=== PATIENT | male | born 1960 | race Caucasian/White ===

== ENCOUNTER → 2017-05-14 | Outpatient (CLI) | payer OTHER | END | disposition home or self-care (01) | LOC: CP 09:25 | DX: J45.20 Mild intermittent asthma, uncomplicated (principal) ==

== ENCOUNTER 2017-06-15 02:02 | Inpatient (IN) | payer OTHER ==
[2017-06-15] VITALS (9 sets, daily range): BP systolic 106–190; BP diastolic 37–88
[~2017-06-15] VITALS: Ht 182.9 cm; Wt 226.5 kg
--- NOTE | ~2017-06-15 | CON ---
[place], [place] REPORT OF CONSULTATION NAME[id number] UNIT #: [id number] ROOM: 428 DOCTOR: ANUSHKA HANCOCK MD BIRTHDATE: [birth year] DOS: REASON FOR CONSULTATION: I was consulted because of atypical chest pain. HISTORY OF PRESENT ILLNESS: A 56-year-old presented with significant shortness of breath, he has been having this for a couple of weeks. The patient has a history of sleep apnea, for which he uses a CPAP. He also had some chest pressure and chest pain. Denies associated with exacerbation or limiting factor. He was seen by a center medical and lab director at [facility] 6 years ago and was told that he only had a murmur. Previous cardiac workup was negative. He went to see his PCP, Liliana, who tested him for flu, which was negative. The patient had urinalysis positive for UTI and treated with Rocephin. Chest x-ray showed pulmonary vascular congestion with small left-sided pleural effusion. PAST MEDICAL HISTORY: Obesity, diabetes, hypertension, hyperlipidemia, sleep apnea. SOCIAL HISTORY: Denies any alcohol or tobacco abuse. Consumes occasional alcohol. No drug abuse. FAMILY HISTORY: Positive for coronary artery disease. ALLERGIES: None. REVIEW OF SYSTEMS: CONSTITUTIONAL: Reports fever and chills. HEENT: No visual disturbances or hearing problems. CARDIOVASCULAR: As per HPI. RESPIRATORY: He does have shortness of breath, particularly exertional. ABDOMEN: Reports constipation. GENITOURINARY: Reports dysuria. NEUROLOGIC: No syncope. PHYSICAL EXAMINATION: VITAL SIGNS: Blood pressure is 150/70. The patient is in sinus rhythm. HEENT: Mildly elevated JVD. LUNGS: Diminished air entry bilaterally. HEART: Sounds are regular. No murmur. ABDOMEN: Obese, soft, nontender. EXTREMITIES: About 1 to 2+ edema. NEUROLOGIC: Stable. LABORATORY DATA: Sodium 141, potassium 4.1, creatinine is 0.8, BUN 9. Cardiac enzymes have been negative. BNP is elevated at 1000. Hemoglobin 12.8, hematocrit within normal limits. Chest x-ray as mentioned. EKG is sinus with nonspecific ST-T changes. IMPRESSION: Probable congestive heart failure with elevated BNP with morbid obesity, sleep apnea and shortness of breath, and chest x-ray showing pulmonary vascular congestion. I would strongly get an echocardiogram to assess for [place], [place] REPORT OF CONSULTATION NAME: JING SHIELDS JR UNIT #: [id number] ROOM: 428 DOCTOR: ANUSHKA HANCOCK MD BIRTHDATE: [birth year] systolic function. The patient also has urinary tract infection. The patient is hypertensive. Morbid obesity, tachycardia, tachypnea, fever, urinary tract infection, and diabetes. RECOMMENDATIONS: Continue the present care. Continue IV diuretics. Follow the CHF pathway. We will get an echocardiogram to assess the ejection fraction to see whether it is systolic or diastolic. Continue the IV antibiotics for UTI. Strict I's and O's. Monitor blood sugars very closely. Once the urinary tract infection is cleared up, consider a stress test as an outpatient. We will review the echocardiogram. Add a dose of an RAFA inhibitor and a small dose of beta jud to control the blood pressure better along with the diuretics. Thank you very much for this interesting consultation. ANUSHKA HANCOCK MD CM:CONSTR:REPORT OF CONSULTATION 0726 06/15/17 0750 interface
[2017-06-15 02:34] LABS: ABG BASE EXCESS 1.3 mmol/L (-2.0-2.0); ABG HCO3 24.6 mmol/l (22-26); ABG O2 SATURATION 96.4 % (95-97); ARTERIAL BLOOD GAS PCO2 39.1 mmHg (35-45); ARTERIAL BLOOD GAS PH 7.423 (7.35-7.45); ARTERIAL BLOOD GAS PO2 87.1 mmHg (80-90)
[2017-06-15 02:41] LABS: BASO % 0.3 % (0.0-1.0); EOS % 0.1 % (1.0-4.0); HEMATOCRIT 40.8 % (42.0-52.0); HEMOGLOBIN 12.8 g/dl (14.0-18.0); LYMPH # 0.7 10*3/uL (1.3-4.4); LYMPH % 9.9 % (27.0-41.0); MEAN CELL VOLUME 87.4 fl (80.0-94.0); MEAN CORPUSCULAR HGB 27.4 pg (27.0-31.0); MEAN CORPUSCULAR HGB CONC 31.4 g/dl (33.0-37.0); MONO # 0.3 10*3/uL (0.1-1.0); MONO % 4.8 % (3.0-9.0); NEUT # 5.8 10*3/uL (2.3-7.9); NEUT % 84.6 % (47.0-73.0); PLATELET COUNT AUTOMATED 126 10*3/uL (130-400); RED BLOOD COUNT 4.67 10*6/uL (4.50-5.90); RED CELL DISTRI WIDTH 14.8 % (0-14.5); WHITE BLOOD COUNT 6.9 10*3/uL (4.8-10.8)
[2017-06-15 02:51] LABS: ACT PARTIAL THROMBO TIME 26.2 SECONDS (20.8-31.5); INTERNATIONAL NORM RATIO 1.1 (2.0-3.5)
[2017-06-15 02:57] LABS: ALKALINE PHOSPHATASE 62 U/L (45-117); BUN 9 mg/dl (7-24); CHLORIDE 103 mmol/L (98-107); CREATININE 0.82 mg/dL (0.70-1.30); POTASSIUM 4.1 mmol/L (3.5-5.1); SGOT/AST 31 IU/L (3-35); SGPT/ALT 30 U/L (12-78); SODIUM 141 mmol/L (136-145)
[2017-06-15 03:42] LABS: BILIRUBIN NEGATIVE (NEGATIVE); BLOOD 3+ (NEGATIVE); CLARITY SL CLOUDY (CLEAR); COLOR YELLOW (YELLOW); GLUCOSE NEGATIVE (NEGATIVE); KETONE NEGATIVE (NEGATIVE); LEUKO ESTERASE 1+ (NEGATIVE); NITRITE POSITIVE (NEGATIVE); SPECIFIC GRAVITY 1.015 (1.005-1.030); UROBILINOGEN 0.2 E.U./dl (0.2-1.0)
[2017-06-15 03:51] LABS: BACTERIA 3+
[2017-06-15 03:52] LABS: RBC 31-40 rbc/hpf (0-2); WBC 21-30 wbc/hpf (0-5)
[2017-06-15 06:07] LABS: FREE T4 1.07 ng/dl (0.76-1.46); PHOSPHOROUS 2.8 mg/dL (2.5-4.9)
[2017-06-15 06:12] LABS: THYROID STIM HORMONE (HS) 0.672 uIU/ml (0.358-4.75)
[2017-06-15 07:37] LABS: VITAMIN D, 25-HYDROXY 19.7 ng/mL (30-100)
[2017-06-15] MEDS ORDERED: COREG25 MG PO (09:40)
[2017-06-15] MEDS ORDERED: PROAIR HFA8.5 GM INH (09:41)
[2017-06-15] MEDS ORDERED: LOSARTAN POTASS25 M1 PO (09:41)
[2017-06-15] MEDS ORDERED: AVPAK AZITHROM250 M1 PO (09:42)
[2017-06-15] MEDS ORDERED: METFORMIN500 MG PO (09:42)
[2017-06-15] MEDS ORDERED: OXYCODONE HCL5 M1 PO (09:42)
[2017-06-16] VITALS: BP 141/56
[2017-06-16 06:27] LABS: BASO % 0.2 % (0.0-1.0); EOS # 0.1 10*3/uL (0.0-0.4); EOS % 1.7 % (1.0-4.0); HEMATOCRIT 38.6 % (42.0-52.0); HEMOGLOBIN 12.2 g/dl (14.0-18.0); LYMPH # 1.3 10*3/uL (1.3-4.4); LYMPH % 31.6 % (27.0-41.0); MEAN CELL VOLUME 86.2 fl (80.0-94.0); MEAN CORPUSCULAR HGB 27.2 pg (27.0-31.0); MEAN CORPUSCULAR HGB CONC 31.6 g/dl (33.0-37.0); MEAN PLATELET VOLUME 11.2 fl (9.6-12.3); MONO # 0.7 10*3/uL (0.1-1.0); MONO % 15.8 % (3.0-9.0); NEUT # 2.1 10*3/uL (2.3-7.9); NEUT % 50.5 % (47.0-73.0); PLATELET COUNT AUTOMATED 122 10*3/uL (130-400); RED BLOOD COUNT 4.48 10*6/uL (4.50-5.90); WHITE BLOOD COUNT 4.2 10*3/uL (4.8-10.8)
[2017-06-16 07:02] LABS: ALBUMIN 2.9 gm/dl (3.1-4.5); ALKALINE PHOSPHATASE 54 U/L (45-117); BUN 9 mg/dl (7-24); CHLORIDE 103 mmol/L (98-107); CREATININE 0.61 mg/dL (0.70-1.30); POTASSIUM 3.6 mmol/L (3.5-5.1); SGOT/AST 41 IU/L (3-35); SGPT/ALT 32 U/L (12-78); SODIUM 139 mmol/L (136-145); TOTAL PROTEIN 6.6 gm/dL (6.4-8.2)
[2017-06-16 08:00] VITALS: BP 165/77
[2017-06-16 12:00] VITALS: BP 154/99
[2017-06-16 16:00] VITALS: BP 162/78; BP 187/89
[2017-06-16 20:00] VITALS: BP 176/81
[2017-06-17] VITALS: BP 153/66; BP 176/80; BP 86/61
[2017-06-17 08:00] VITALS: BP 172/80
[2017-06-17] MEDS ORDERED: LOSARTAN POTASS50 M1 PO (08:36)
[2017-06-17] MEDS ORDERED: VITAMIN D31000 UNIT PO (08:36)
[2017-06-17] MEDS ORDERED: HYDR12.5C PO (08:36)
[2017-06-17] MEDS ORDERED: MACROBID100 M1 PO ×2 (08:40→11:24)
== END 2017-06-17 12:45 | disposition home or self-care (01) | DRG 871 ==
LOC: ED 02:02 → 4E 04:13 → EDHOLD 04:13 → 4E 04:31
PROVIDERS: Internal Medicine; Student in an Organized Health Care Education/Training Program
DX: A41.9 Sepsis, unspecified organism (principal); J18.1 Lobar pneumonia, unspecified organism; D69.6 Thrombocytopenia, unspecified; E44.0 Moderate protein-calorie malnutrition; I11.0 Hypertensive heart disease with heart failure; I50.9 Heart failure, unspecified; E11.65 Type 2 diabetes mellitus with hyperglycemia; E66.01 Morbid (severe) obesity due to excess calories; I16.1 Hypertensive emergency; N39.0 Urinary tract infection, site not specified; Z68.44 Body mass index [BMI] 60.0-69.9, adult; G47.33 Obstructive sleep apnea (adult) (pediatric); K21.9 Gastro-esophageal reflux disease without esophagitis; M94.0 Chondrocostal junction syndrome [Tietze]; D64.9 Anemia, unspecified; E78.5 Hyperlipidemia, unspecified; E55.9 Vitamin D deficiency, unspecified; Z79.899 Other long term (current) drug therapy; Z82.49 Family history of ischemic heart disease and other diseases of the circulatory system

== ENCOUNTER → 2017-09-27 | Outpatient (CLI) | payer OTHER ==
[~2017-09-27] MED LIST: AVPAK AZITHROM250 M1 PO; COREG25 MG PO; HYDR12.5C PO; LOSARTAN POTASS25 M1 PO; LOSARTAN POTASS50 M1 PO; MACROBID100 M1 PO; METFORMIN500 MG PO; OXYCODONE HCL5 M1 PO; PROAIR HFA8.5 GM INH; VITAMIN D31000 UNIT PO
== END | disposition home or self-care (01) ==
LOC: LAB 11:33
DX: D64.9 Anemia, unspecified (principal); R53.83 Other fatigue

== ENCOUNTER → 2017-09-30 | Outpatient (CLI) | payer OTHER ==
[2017-09-30 12:01] LABS: BUN 10 mg/dl (7-24); CHLORIDE 107 mmol/L (98-107); CREATININE 0.73 mg/dL (0.70-1.30); POTASSIUM 4.4 mmol/L (3.5-5.1); SODIUM 142 mmol/L (136-145)
== END | disposition home or self-care (01) ==
LOC: LAB 11:20
PROVIDERS: Internal Medicine Critical Care Medicine
DX: I10 Essential (primary) hypertension (principal)

== ENCOUNTER 2019-04-18 01:14 | Emergency (ER) | payer OTHER, MEDICAID ==
[~2019-04-18] VITALS: Ht 185.4 cm; Wt 244.9 kg
[2019-04-18] MEDS ORDERED: AMLODIPINE BESY10 MG PO (01:15)
[2019-04-18] MEDS ORDERED: ALPRAZOLAM0.5 M3 PO (01:16)
[2019-04-18] MEDS ORDERED: PRAMIPEXOLE DI0.5 MG PO (01:17)
[2019-04-18] MEDS ORDERED: DOXEPIN HCL50 MG PO (01:17)
[2019-04-18] MEDS ORDERED: METFORMIN HYDR500 MG PO (01:18)
[2019-04-18] MEDS ORDERED: CITALOPRAM HYDR40 MG PO (01:19)
[2019-04-18] MEDS ORDERED: FUROSEMIDE40 MG PO (01:19)
[2019-04-18] MEDS ORDERED: POTASSIUM CHLO20 ME3 PO (01:19)
[2019-04-18] MEDS ORDERED: DOXAZOSIN MESYLA2 MG PO (01:20)
[2019-04-18] MEDS ORDERED: AUGMENTIN 875-875 MG PO (01:59)
== END 2019-04-18 02:32 | disposition home or self-care (01) ==
LOC: ED 01:14
DX: K04.7 Periapical abscess without sinus (principal); E11.9 Type 2 diabetes mellitus without complications; E78.5 Hyperlipidemia, unspecified; I10 Essential (primary) hypertension; J45.909 Unspecified asthma, uncomplicated; E66.01 Morbid (severe) obesity due to excess calories; Z79.899 Other long term (current) drug therapy

== ENCOUNTER → 2019-05-03 | Outpatient (CLI) | payer OTHER ==
[~2019-05-03] MED LIST changes: +ALPRAZOLAM0.5 M3 PO; +AMLODIPINE BESY10 MG PO; +AUGMENTIN 875-875 MG PO; +CITALOPRAM HYDR40 MG PO; +DOXAZOSIN MESYLA2 MG PO; +DOXEPIN HCL50 MG PO; +FUROSEMIDE40 MG PO; +METFORMIN HYDR500 MG PO; +POTASSIUM CHLO20 ME3 PO; +PRAMIPEXOLE DI0.5 MG PO
== END | disposition home or self-care (01) ==
LOC: CARD 09:30
DX: I10 Essential (primary) hypertension (principal); R60.0 Localized edema; R06.09 Other forms of dyspnea

== ENCOUNTER 2019-09-14 02:13 | Emergency (ER) | payer OTHER, MEDICAID ==
[2019-09-14] MEDS ORDERED: AMOXICILLIN500 M2 PO (03:39)
== END 2019-09-14 04:18 | disposition home or self-care (01) ==
LOC: ED 02:13
DX: K08.89 Other specified disorders of teeth and supporting structures (principal); E11.9 Type 2 diabetes mellitus without complications; E66.01 Morbid (severe) obesity due to excess calories; I10 Essential (primary) hypertension; E78.5 Hyperlipidemia, unspecified; Z79.899 Other long term (current) drug therapy

== ENCOUNTER 2019-09-27 20:22 | Emergency (ER) | payer OTHER, MEDICAID ==
[~2019-09-27] VITALS: Ht 185.4 cm; Wt 251.7 kg
[~2019-09-27 20:22] MED LIST changes: +AMOXICILLIN500 M2 PO
== END 2019-09-27 22:20 | disposition home or self-care (01) ==
LOC: ED 20:22
DX: K08.89 Other specified disorders of teeth and supporting structures (principal); J45.909 Unspecified asthma, uncomplicated; I10 Essential (primary) hypertension; E11.9 Type 2 diabetes mellitus without complications; E66.9 Obesity, unspecified; Z79.899 Other long term (current) drug therapy

== ENCOUNTER 2020-11-17 21:45 | Emergency (ER) | payer OTHER ==
[2020-11-17 23:00] LABS: BASO % 0.3 % (0.0-1.0); EOS # 0.2 10*3/uL (0.0-0.4); EOS % 3.1 % (1.0-4.0); HEMATOCRIT 38.4 % (42.0-52.0); LYMPH # 1.7 10*3/uL (1.3-4.4); LYMPH % 27.9 % (27.0-41.0); MEAN CELL VOLUME 85.3 fl (80.0-94.0); MEAN CORPUSCULAR HGB 26.7 pg (27.0-31.0); MEAN CORPUSCULAR HGB CONC 31.3 g/dl (33.0-37.0); MEAN PLATELET VOLUME 9.8 fl (9.6-12.3); MONO # 0.5 10*3/uL (0.1-1.0); MONO % 8.1 % (3.0-9.0); NEUT # 3.7 10*3/uL (2.3-7.9); NEUT % 60.4 % (47.0-73.0); PLATELET COUNT AUTOMATED 188 10*3/uL (130-400); WHITE BLOOD COUNT 6.2 10*3/uL (4.8-10.8)
[2020-11-17 23:16] LABS: ALBUMIN 2.8 gm/dl (3.1-4.5); ALKALINE PHOSPHATASE 78 U/L (45-117); BUN 10 mg/dl (7-24); CHLORIDE 106 mmol/L (98-107); CREATININE 0.77 mg/dL (0.70-1.30); LIPASE 84 U/L (73-393); POTASSIUM 3.8 mmol/L (3.5-5.1); SGOT/AST 21 IU/L (3-35); SGPT/ALT 22 U/L (12-78); SODIUM 137 mmol/L (136-145); TOTAL PROTEIN 7.5 gm/dL (6.4-8.2); TROPONIN I < 0.015 ng/ml (<0.045)
[2020-11-18] MEDS ORDERED: CEPHALEXIN500 M1 PO (01:22)
== END 2020-11-18 01:45 | disposition home or self-care (01) ==
LOC: ED 21:45
PROVIDERS: Physician Assistant
DX: L03.115 Cellulitis of right lower limb (principal); L03.116 Cellulitis of left lower limb; R60.0 Localized edema; R79.82 Elevated C-reactive protein (CRP); R06.02 Shortness of breath; Z79.2 Long term (current) use of antibiotics; Z79.899 Other long term (current) drug therapy

== ENCOUNTER 2021-03-17 23:12 | Emergency (ER) | payer MEDICARE ==
[~2021-03-17] VITALS: Ht 172.7 cm; Wt 276.7 kg
[~2021-03-17 23:12] MED LIST changes: +CEPHALEXIN500 M1 PO
[2021-03-17 23:32] LABS: BASO % 0.2 % (0.0-1.0); EOS # 0.1 10*3/uL (0.0-0.4); EOS % 0.6 % (1.0-4.0); HEMATOCRIT 36.5 % (42.0-52.0); LYMPH # 1.5 10*3/uL (1.3-4.4); LYMPH % 11.9 % (27.0-41.0); MEAN CELL VOLUME 84.3 fl (80.0-94.0); MEAN CORPUSCULAR HGB 25.6 pg (27.0-31.0); MEAN CORPUSCULAR HGB CONC 30.4 g/dl (33.0-37.0); MEAN PLATELET VOLUME 9.5 fl (9.6-12.3); MONO # 0.9 10*3/uL (0.1-1.0); MONO % 7.2 % (3.0-9.0); NEUT % 79.7 % (47.0-73.0); PLATELET COUNT AUTOMATED 211 10*3/uL (130-400); RED BLOOD COUNT 4.33 10*6/uL (4.50-5.90); RED CELL DISTRI WIDTH 15.8 % (0-14.5); WHITE BLOOD COUNT 12.6 10*3/uL (4.8-10.8)
[2021-03-17 23:48] LABS: ALBUMIN 2.4 gm/dl (3.1-4.5); ALKALINE PHOSPHATASE 68 U/L (45-117); BUN 11 mg/dl (7-24); CHLORIDE 108 mmol/L (98-107); POTASSIUM 4.3 mmol/L (3.5-5.1); SGOT/AST 21 IU/L (3-35); SGPT/ALT 19 U/L (12-78); SODIUM 137 mmol/L (136-145); TOTAL PROTEIN 7.2 gm/dL (6.4-8.2)
== END 2021-03-18 03:16 | disposition home or self-care (01) ==
LOC: ED 23:12
PROVIDERS: Internal Medicine
DX: B34.9 Viral infection, unspecified (principal); Z20.822 Contact with and (suspected) exposure to COVID-19; E66.01 Morbid (severe) obesity due to excess calories; E88.09 Other disorders of plasma-protein metabolism, not elsewhere classified; D72.829 Elevated white blood cell count, unspecified

== ENCOUNTER 2023-05-19 18:39 | Emergency (ER) | payer MEDICARE, MEDICAID ==
[~2023-05-19] VITALS: Ht 182.8 cm; Wt 240.4 kg
[~2023-05-19 18:39] MED LIST changes: +AMLODIPINE BESYL5 MG PO; +BUMETANIDE1 MG PO; +CARVEDILOL25 MG PO; +COZAAR50 M1 PO; +DEXAMETHASONE6 MG PO; +DOXYCYCLINE HY100 M3 PO; +HYDROCODONE-AC1 EAC1 PO; +HYDROCODONE-AC1 EACH PO; +LEVOFLOXACIN750 M2 PO; +OXYGEN NAS; +PREDNISONE10 MG PO; +PROVENTIL HFA6.7 GM INH; +VIBRAMYCIN HYC100 MG PO; +XANAX0.25 MG PO; +XARE20MG PO
[2023-05-19 19:30] LABS: BASO % 0.4 % (0.0-1.0); EOS # 0.2 10*3/uL (0.0-0.4); EOS % 2.9 % (1.0-4.0); LYMPH # 1.3 10*3/uL (1.3-4.4); LYMPH % 15.5 % (27.0-41.0); MEAN CELL VOLUME 88.2 fl (80.0-94.0); MEAN CORPUSCULAR HGB 25.6 pg (27.0-31.0); MEAN CORPUSCULAR HGB CONC 29.1 g/dl (33.0-37.0); MEAN PLATELET VOLUME 9.3 fl (9.6-12.3); MONO # 0.6 10*3/uL (0.1-1.0); MONO % 7.7 % (3.0-9.0); NEUT # 6.1 10*3/uL (2.3-7.9); NEUT % 73.3 % (47.0-73.0); PLATELET COUNT AUTOMATED 219 10*3/uL (130-400); RED BLOOD COUNT 3.63 10*6/uL (4.50-5.90); RED CELL DISTRI WIDTH 18.2 % (0-14.5); WHITE BLOOD COUNT 8.3 10*3/uL (4.8-10.8)
[2023-05-19 19:53] LABS: BUN 9 mg/dl (9-23); CHLORIDE 101 mmol/L (98-107); LIPASE 18 U/L (12-53); POTASSIUM 4.5 mmol/L (3.4-5.1)
== END 2023-05-19 22:23 | disposition home or self-care (01) ==
LOC: ED 18:39
PROVIDERS: Internal Medicine
DX: R07.89 Other chest pain (principal); Z48.00 Encounter for change or removal of nonsurgical wound dressing; J44.9 Chronic obstructive pulmonary disease, unspecified; E11.9 Type 2 diabetes mellitus without complications; I48.91 Unspecified atrial fibrillation; I11.0 Hypertensive heart disease with heart failure; I50.9 Heart failure, unspecified; F32.A Depression, unspecified; F41.9 Anxiety disorder, unspecified; D64.9 Anemia, unspecified; Z88.5 Allergy status to narcotic agent; Z88.8 Allergy status to other drugs, medicaments and biological substances; Z98.890 Other specified postprocedural states

== ENCOUNTER 2023-05-21 14:12 | Inpatient (IN) | payer MEDICARE ==
[~2023-05-21] VITALS: Ht 185.4 cm; Wt 269.0 kg
[2023-05-21 14:28] VITALS: BP 106/68
[2023-05-21 14:43] LABS: BASO % 0.4 % (0.0-1.0); EOS # 0.2 10*3/uL (0.0-0.4); EOS % 2.6 % (1.0-4.0); HEMATOCRIT 30.2 % (42.0-52.0); LYMPH % 15.1 % (27.0-41.0); MEAN CELL VOLUME 89.3 fl (80.0-94.0); MEAN CORPUSCULAR HGB 25.4 pg (27.0-31.0); MEAN CORPUSCULAR HGB CONC 28.5 g/dl (33.0-37.0); MEAN PLATELET VOLUME 9.1 fl (9.6-12.3); MONO # 0.6 10*3/uL (0.1-1.0); MONO % 8.7 % (3.0-9.0); NEUT % 72.8 % (47.0-73.0); PLATELET COUNT AUTOMATED 197 10*3/uL (130-400); RED BLOOD COUNT 3.38 10*6/uL (4.50-5.90); RED CELL DISTRI WIDTH 18.3 % (0-14.5); WHITE BLOOD COUNT 6.8 10*3/uL (4.8-10.8)
[2023-05-21 14:56] LABS: ACT PARTIAL THROMBO TIME 40.9 SECONDS (20.0-32.1)
[2023-05-21 15:06] LABS: ALKALINE PHOSPHATASE 65 U/L (46-116); BUN 10 mg/dl (9-23); CHLORIDE 103 mmol/L (98-107); LIPASE 19 U/L (12-53); POTASSIUM 4.5 mmol/L (3.4-5.1); SGPT/ALT 8 U/L (5-49); TOTAL PROTEIN 6.7 gm/dL (6.0-8.0)
[2023-05-21] MEDS ORDERED: Ceftriaxone Sodium 1 GM/10 ML SYR IV ONE (16:30)
[2023-05-21] MEDS ORDERED: AZITHROMYCIN 250 ML IV ONE (16:30)
[2023-05-21] MEDS ORDERED: methylPREDNISolone sod succ 125 MG VIAL IV ONE (16:30)
[2023-05-21] MEDS ORDERED: Albuterol Sulf/Ipratropium 3 ML VIAL NEB ONE (16:30)
[2023-05-21] MEDS ORDERED: Ondansetron Hydrochloride 4 MG/2 ML VIAL IV PRN (16:55)
[2023-05-21] MEDS ORDERED: ACETAMINOPHEN 325 MG TAB PO PRN (16:55)
[2023-05-21] MEDS ORDERED: Magnesium Hydroxide 30 ML UDC PO PRN (16:55)
[2023-05-21] MEDS ORDERED: Albuterol Sulf/Ipratropium 3 ML VIAL NEB SCH (17:10)
[2023-05-21] MEDS ORDERED: RIVAROXABAN 20 MG TAB PO SCH (18:00)
[2023-05-21 21:00] VITALS: BP 92/47
[2023-05-21] MEDS ORDERED: XANAX1 MG PO (21:45)
[2023-05-21] MEDS ORDERED: Doxepin Hydrochloride 25 MG CAP PO SCH (22:00)
[2023-05-21] MEDS ORDERED: GUAIFENESIN 600 MG TAB ER PO SCH (22:00)
[2023-05-21] MEDS ORDERED: ALPRAZolam 0.5 MG TAB PO PRN (22:00)
[2023-05-21] MEDS ORDERED: NYSTATIN 30 GM POWDER T SCH (22:15)
[2023-05-22] VITALS: BP 94/52
[2023-05-22 06:42] LABS: BASO % 0.2 % (0.0-1.0); EOS % 0.4 % (1.0-4.0); HEMATOCRIT 28.9 % (42.0-52.0); LYMPH # 0.6 10*3/uL (1.3-4.4); LYMPH % 11.8 % (27.0-41.0); MEAN CELL VOLUME 87.8 fl (80.0-94.0); MEAN CORPUSCULAR HGB 26.1 pg (27.0-31.0); MEAN CORPUSCULAR HGB CONC 29.8 g/dl (33.0-37.0); MEAN PLATELET VOLUME 9.8 fl (9.6-12.3); MONO # 0.1 10*3/uL (0.1-1.0); MONO % 1.7 % (3.0-9.0); NEUT # 4.7 10*3/uL (2.3-7.9); NEUT % 85.3 % (47.0-73.0); PLATELET COUNT AUTOMATED 211 10*3/uL (130-400); RED BLOOD COUNT 3.29 10*6/uL (4.50-5.90); WHITE BLOOD COUNT 5.4 10*3/uL (4.8-10.8)
[2023-05-22 06:48] LABS: ALKALINE PHOSPHATASE 66 U/L (46-116); BUN 14 mg/dl (9-23); CHLORIDE 103 mmol/L (98-107); SGPT/ALT 8 U/L (5-49); TOTAL PROTEIN 6.6 gm/dL (6.0-8.0)
[2023-05-22 07:15] LABS: VITAMIN D, 25-HYDROXY 54.6 ng/mL (30-100)
[2023-05-22 08:00] VITALS: BP 110/50
[2023-05-22] MEDS ORDERED: methylPREDNISolone sod succ 40 MG VIAL IV SCH (10:00)
[2023-05-22 12:00] VITALS: BP 121/59
[2023-05-22] MEDS ORDERED: Acetaminophen/Hydrocodone 5 MG/325 MG TABLET PO PRN (12:30)
[2023-05-22] MEDS ORDERED: VANCOMYCIN/WATER FOR INJ (PEG) 400 ML IV SCH (14:00)
[2023-05-22 16:00] VITALS: BP 117/56
[2023-05-22] MEDS ORDERED: AZITHROMYCIN 250 ML IV SCH (16:00)
[2023-05-22] MEDS ORDERED: Ceftriaxone Sodium 1 GM in SYRINGE INFUSION 10 ML IV SCH (17:00)
[2023-05-22 19:27] VITALS: BP 125/66
[2023-05-22] MEDS ORDERED: CARVEDILOL 25 MG TAB PO SCH (22:00)
[2023-05-22] MEDS ORDERED: ALGINATE DRESSING/CME-CELL 1 EACH BANDAGE T ONE (22:59)
[2023-05-23] VITALS: BP 125/71
[2023-05-23 05:27] LABS: BUN 13 mg/dl (9-23); CHLORIDE 104 mmol/L (98-107); POTASSIUM 4.3 mmol/L (3.4-5.1)
[2023-05-23 06:26] LABS: BASO % 0.1 % (0.0-1.0); EOS % 0.2 % (1.0-4.0); LYMPH # 0.8 10*3/uL (1.3-4.4); LYMPH % 8.5 % (27.0-41.0); MEAN CELL VOLUME 88.8 fl (80.0-94.0); MEAN CORPUSCULAR HGB 25.1 pg (27.0-31.0); MEAN CORPUSCULAR HGB CONC 28.3 g/dl (33.0-37.0); MEAN PLATELET VOLUME 9.7 fl (9.6-12.3); MONO # 0.6 10*3/uL (0.1-1.0); MONO % 6.4 % (3.0-9.0); NEUT # 8.3 10*3/uL (2.3-7.9); NEUT % 84.2 % (47.0-73.0); PLATELET COUNT AUTOMATED 240 10*3/uL (130-400); RED BLOOD COUNT 3.38 10*6/uL (4.50-5.90); WHITE BLOOD COUNT 9.9 10*3/uL (4.8-10.8)
[2023-05-23 08:00] VITALS: BP 124/78
[2023-05-23] MEDS ORDERED: FUROSEMIDE 40 MG TAB PO SCH (10:00)
[2023-05-23] MEDS ORDERED: CITALOPRAM 20 MG TAB PO SCH (10:00)
[2023-05-23 12:00] VITALS: BP 123/76
[2023-05-23 16:00] VITALS: BP 127/59
[2023-05-23 20:00] VITALS: BP 130/72
[2023-05-23] MEDS ORDERED: NYSTATIN CREAM 15 GM TUBE T SCH (22:00)
[2023-05-24] VITALS: BP 165/87
[2023-05-24 05:59] LABS: BUN 17 mg/dl (9-23); CHLORIDE 105 mmol/L (98-107); POTASSIUM 4.6 mmol/L (3.4-5.1)
[2023-05-24 06:26] LABS: BASO % 0.3 % (0.0-1.0); HEMATOCRIT 31.2 % (42.0-52.0); LYMPH # 0.8 10*3/uL (1.3-4.4); LYMPH % 10.3 % (27.0-41.0); MEAN CELL VOLUME 90.2 fl (80.0-94.0); MEAN CORPUSCULAR HGB 25.4 pg (27.0-31.0); MEAN CORPUSCULAR HGB CONC 28.2 g/dl (33.0-37.0); MEAN PLATELET VOLUME 9.6 fl (9.6-12.3); MONO # 0.3 10*3/uL (0.1-1.0); MONO % 3.2 % (3.0-9.0); NEUT # 6.6 10*3/uL (2.3-7.9); NEUT % 85.2 % (47.0-73.0); PLATELET COUNT AUTOMATED 230 10*3/uL (130-400); RED BLOOD COUNT 3.46 10*6/uL (4.50-5.90); RED CELL DISTRI WIDTH 17.9 % (0-14.5); WHITE BLOOD COUNT 7.8 10*3/uL (4.8-10.8)
[2023-05-24 08:00] VITALS: BP 144/86
[2023-05-24] MEDS ORDERED: FOAM BANDAGE 6X6 T ONE (09:33)
[2023-05-24] MEDS ORDERED: ALGINATE DRESSING/CME-CELL 1 EACH BANDAGE T ONE (10:28)
[2023-05-24] MEDS ORDERED: PRAMIPEXOLE DI0.5 MG PO (10:50)
[2023-05-24 12:00] VITALS: BP 137/81
[2023-05-24] MEDS ORDERED: FOAM BANDAGE 1 EACH BANDAGE T ONE (15:09)
[2023-05-24 16:00] VITALS: BP 126/82
[2023-05-24 20:00] VITALS: BP 151/67
[2023-05-24] MEDS ORDERED: AQUAPHOR OINTMENT Base 50 GM TUBE T SCH (22:00)
[2023-05-24] MEDS ORDERED: AMMONIUM LACTATE 12% LOTION T SCH (22:00)
[2023-05-24] MEDS ORDERED: Menthol/Zinc Oxide 4 GM THIN T SCH (22:00)
[2023-05-24] MEDS ORDERED: Pramipexole Dihydrochloride 0.5 MG TAB PO SCH (22:00)
[2023-05-24] MEDS ORDERED: DOXAZOSIN MESYLATE 2 MG TAB PO SCH (22:00)
[2023-05-25] VITALS: BP 134/76
[2023-05-25 08:00] VITALS: BP 143/62
[2023-05-25] MEDS ORDERED: VANCOMYCIN/WATER FOR INJ (PEG) 350 ML IV SCH (08:00)
[2023-05-25 12:00] VITALS: BP 143/78
[2023-05-25] MEDS ORDERED: FOAM BANDAGE 1 EACH BANDAGE T ONE (14:23)
[2023-05-25] MEDS ORDERED: ALGINATE DRESSING/CME-CELL 1 EACH BANDAGE T ONE (14:23)
[2023-05-25 16:00] VITALS: BP 136/66
[2023-05-25 20:00] VITALS: BP 139/73
[2023-05-25 23:18] LABS: BILIRUBIN Negative (Negative); BLOOD Trace-Lysed (Negative); CLARITY Clear (Clear); COLOR Yellow (Yellow); GLUCOSE Negative (Negative); KETONE Negative (Negative); LEUKO ESTERASE Trace (Negative); NITRITE Negative (Negative); SPECIFIC GRAVITY 1.015 (1.001-1.030); UROBILINOGEN 0.2 E.U./dl (0.0-1.0)
[2023-05-25 23:30] LABS: URIC ACID CRYSTALS 2+
[2023-05-26] VITALS: BP 144/66
[2023-05-26 06:20] LABS: BUN 18 mg/dl (9-23); CHLORIDE 104 mmol/L (98-107); POTASSIUM 4.4 mmol/L (3.4-5.1)
[2023-05-26 06:32] LABS: HEMATOCRIT 32.3 % (42.0-52.0); MEAN CORPUSCULAR HGB 25.3 pg (27.0-31.0); MEAN CORPUSCULAR HGB CONC 28.5 g/dl (33.0-37.0); MEAN PLATELET VOLUME 9.5 fl (9.6-12.3); PLATELET COUNT AUTOMATED 238 10*3/uL (130-400); RED BLOOD COUNT 3.63 10*6/uL (4.50-5.90); RED CELL DISTRI WIDTH 17.6 % (0-14.5)
[2023-05-26 06:35] LABS: MANUAL DIFF REFLEX YES
[2023-05-26 07:33] LABS: OVALOCYTES FEW; PLATELET SUFFICIENCY NORMAL (NORMAL); POLYCHROMASIA SLIGHT; TOTAL CELLS COUNTED 100 #CELLS
[2023-05-26 07:34] LABS: ROULEAUX SLIGHT
[2023-05-26 08:00] VITALS: BP 150/73
[2023-05-26 12:00] VITALS: BP 132/60
[2023-05-26] MEDS ORDERED: AMMONIUM LACTA227 GM T (12:18)
[2023-05-26] MEDS ORDERED: REMEDY CALAZIME4 GM T (12:18)
[2023-05-26] MEDS ORDERED: K-TAB20 MEQ PO (12:19)
[2023-05-26] MEDS ORDERED: PREDNISONE10 MG PO (12:19)
[2023-05-26] MEDS ORDERED: NYSTATIN CREAM15 GM T (12:20)
[2023-05-26] MEDS ORDERED: FOAM BANDAGE 1 EACH BANDAGE T ONE (12:40)
[2023-05-26 16:00] VITALS: BP 134/77
== END 2023-05-26 17:40 | disposition home health service (06) | DRG 189 ==
LOC: ED 14:12 → 4E 16:47 → EDHOLD 16:47 → 4E 19:46
PROVIDERS: Emergency Medicine; Student in an Organized Health Care Education/Training Program; ADMIT Internal Medicine; ATTEND Internal Medicine
DX: J96.01 Acute respiratory failure with hypoxia (principal); J44.1 Chronic obstructive pulmonary disease with (acute) exacerbation; Z68.45 Body mass index [BMI] 70 or greater, adult; L03.115 Cellulitis of right lower limb; E66.2 Morbid (severe) obesity with alveolar hypoventilation; I50.32 Chronic diastolic (congestive) heart failure; S81.801A Unspecified open wound, right lower leg, initial encounter; X58.XXXA Exposure to other specified factors, initial encounter; D64.9 Anemia, unspecified; E83.51 Hypocalcemia; R73.9 Hyperglycemia, unspecified; I48.0 Paroxysmal atrial fibrillation; I87.2 Venous insufficiency (chronic) (peripheral); E65 Localized adiposity; F33.41 Major depressive disorder, recurrent, in partial remission; G25.81 Restless legs syndrome; S41.101A Unspecified open wound of right upper arm, initial encounter; S01.80XA Unspecified open wound of other part of head, initial encounter; S41.102A Unspecified open wound of left upper arm, initial encounter; S31.109A Unspecified open wound of abdominal wall, unspecified quadrant without penetration into peritoneal cavity, initial encounter; S11.80XA Unspecified open wound of other specified part of neck, initial encounter; S81.802A Unspecified open wound, left lower leg, initial encounter; L89.890 Pressure ulcer of other site, unstageable; S31.30XA Unspecified open wound of scrotum and testes, initial encounter; Z88.8 Allergy status to other drugs, medicaments and biological substances; Y93.89 Activity, other specified; Y92.89 Other specified places as the place of occurrence of the external cause; Y99.8 Other external cause status; Z82.49 Family history of ischemic heart disease and other diseases of the circulatory system; Z83.3 Family history of diabetes mellitus; Z80.3 Family history of malignant neoplasm of breast

== ENCOUNTER → 2023-06-03 | Outpatient (CLI) | payer MEDICARE ==
[~2023-06-03] MED LIST changes: +AMMONIUM LACTA227 GM T; +K-TAB20 MEQ PO; +NYSTATIN CREAM15 GM T; +REMEDY CALAZIME4 GM T; +XANAX1 MG PO
== END | disposition home or self-care (01) ==
LOC: WOUNDCARE 00:35
PROVIDERS: ATTEND Nurse Practitioner Family
DX: E11.622 Type 2 diabetes mellitus with other skin ulcer (principal); L97.812 Non-pressure chronic ulcer of other part of right lower leg with fat layer exposed; I87.2 Venous insufficiency (chronic) (peripheral); E66.01 Morbid (severe) obesity due to excess calories; E11.51 Type 2 diabetes mellitus with diabetic peripheral angiopathy without gangrene; E11.69 Type 2 diabetes mellitus with other specified complication; M86.68 Other chronic osteomyelitis, other site; G47.30 Sleep apnea, unspecified; I10 Essential (primary) hypertension; G25.89 Other specified extrapyramidal and movement disorders; I48.91 Unspecified atrial fibrillation; J44.9 Chronic obstructive pulmonary disease, unspecified; F32.A Depression, unspecified; F41.9 Anxiety disorder, unspecified; Z68.44 Body mass index [BMI] 60.0-69.9, adult

== ENCOUNTER → 2023-06-16 | Outpatient (CLI) | payer MEDICARE | END | disposition home or self-care (01) | LOC: WOUNDCARE 01:40 | PROVIDERS: ATTEND Nurse Practitioner Family | DX: E11.622 Type 2 diabetes mellitus with other skin ulcer (principal); L97.812 Non-pressure chronic ulcer of other part of right lower leg with fat layer exposed; I87.2 Venous insufficiency (chronic) (peripheral); E66.01 Morbid (severe) obesity due to excess calories; E11.51 Type 2 diabetes mellitus with diabetic peripheral angiopathy without gangrene; E11.69 Type 2 diabetes mellitus with other specified complication; M86.9 Osteomyelitis, unspecified; G47.30 Sleep apnea, unspecified; I10 Essential (primary) hypertension; G25.81 Restless legs syndrome; I48.91 Unspecified atrial fibrillation; J44.89 Other specified chronic obstructive pulmonary disease; F32.9 Major depressive disorder, single episode, unspecified; F41.9 Anxiety disorder, unspecified; Z68.44 Body mass index [BMI] 60.0-69.9, adult; Z79.84 Long term (current) use of oral hypoglycemic drugs; Z79.899 Other long term (current) drug therapy ==

== ENCOUNTER → 2023-06-30 | Outpatient (CLI) | payer MEDICARE | END | disposition home or self-care (01) | LOC: WOUNDCARE 01:42 | PROVIDERS: ATTEND Nurse Practitioner Family | DX: E11.622 Type 2 diabetes mellitus with other skin ulcer (principal); L97.812 Non-pressure chronic ulcer of other part of right lower leg with fat layer exposed; E11.51 Type 2 diabetes mellitus with diabetic peripheral angiopathy without gangrene; E11.69 Type 2 diabetes mellitus with other specified complication; M86.9 Osteomyelitis, unspecified; I10 Essential (primary) hypertension; I48.91 Unspecified atrial fibrillation; I87.2 Venous insufficiency (chronic) (peripheral); J44.89 Other specified chronic obstructive pulmonary disease; G47.30 Sleep apnea, unspecified; G25.81 Restless legs syndrome; L03.115 Cellulitis of right lower limb; R01.1 Cardiac murmur, unspecified; E66.01 Morbid (severe) obesity due to excess calories; F41.9 Anxiety disorder, unspecified; F32.9 Major depressive disorder, single episode, unspecified; Z68.44 Body mass index [BMI] 60.0-69.9, adult; Z79.84 Long term (current) use of oral hypoglycemic drugs; Z79.899 Other long term (current) drug therapy ==

== ENCOUNTER 2023-07-10 14:17 | Inpatient (IN) | payer MEDICARE ==
[~2023-07-10] VITALS: Ht 185 cm; Wt 250.0 kg
[~2023-07-10 14:17] MED LIST changes: -CITALOPRAM HYDR40 MG PO; +CITALOPRAM40 MG PO
[2023-07-10 14:18] VITALS: BP 106/59
[2023-07-10] MEDS ORDERED: DOXEPIN HCL100 MG PO (14:49)
[2023-07-10 15:04] LABS: BASO % 0.3 % (0.0-1.0); EOS # 0.3 10*3/uL (0.0-0.4); EOS % 4.1 % (1.0-4.0); LYMPH # 1.4 10*3/uL (1.3-4.4); LYMPH % 20.8 % (27.0-41.0); MEAN CELL VOLUME 89.1 fl (80.0-94.0); MEAN CORPUSCULAR HGB 26.2 pg (27.0-31.0); MEAN CORPUSCULAR HGB CONC 29.4 g/dl (33.0-37.0); MEAN PLATELET VOLUME 9.3 fl (9.6-12.3); MONO # 0.5 10*3/uL (0.1-1.0); MONO % 7.4 % (3.0-9.0); NEUT # 4.4 10*3/uL (2.3-7.9); NEUT % 67.2 % (47.0-73.0); PLATELET COUNT AUTOMATED 259 10*3/uL (130-400); RED BLOOD COUNT 3.93 10*6/uL (4.50-5.90); RED CELL DISTRI WIDTH 15.9 % (0-14.5); WHITE BLOOD COUNT 6.6 10*3/uL (4.8-10.8)
[2023-07-10 15:14] LABS: ACT PARTIAL THROMBO TIME 39.8 SECONDS (20.0-32.1)
[2023-07-10 15:26] LABS: ALKALINE PHOSPHATASE 81 U/L (46-116); BUN 9 mg/dl (9-23); CHLORIDE 104 mmol/L (98-107); POTASSIUM 3.9 mmol/L (3.4-5.1); SGPT/ALT 11 U/L (5-49); TOTAL PROTEIN 6.3 gm/dL (6.0-8.0)
[2023-07-10] MEDS ORDERED: SODIUM CHLORIDE 0.9% 500 ML IV ONE (16:20)
[2023-07-10] MEDS ORDERED: Ceftriaxone Sodium 1 GM/10 ML SYR IV ONE (16:20)
[2023-07-10] MEDS ORDERED: Ondansetron Hydrochloride 4 MG/2 ML VIAL IV PRN (16:35)
[2023-07-10] MEDS ORDERED: ACETAMINOPHEN 325 MG TAB PO PRN (16:35)
[2023-07-10] MEDS ORDERED: Magnesium Hydroxide 30 ML UDC PO PRN (16:35)
[2023-07-10 17:10] VITALS: BP 111/64
[2023-07-10] MEDS ORDERED: ALPRAZolam 0.5 MG TAB PO PRN (17:55)
[2023-07-10 18:10] VITALS: BP 143/78
[2023-07-10] MEDS ORDERED: Albuterol Sulfate 2.5 MG/3 ML VIAL NEB PRN (18:10)
[2023-07-10 20:08] VITALS: BP 103/79
[2023-07-10 20:14] VITALS: BP 133/81
[2023-07-10] MEDS ORDERED: RIVAROXABAN 20 MG TAB PO SCH (21:00)
[2023-07-10] MEDS ORDERED: Doxepin Hydrochloride 25 MG CAP PO SCH (22:00)
[2023-07-10] MEDS ORDERED: DOXAZOSIN MESYLATE 2 MG TAB PO SCH (22:00)
[2023-07-10] MEDS ORDERED: NYSTATIN 15 GM BOT T SCH (22:00)
[2023-07-10] MEDS ORDERED: Menthol/Zinc Oxide 4 GM THIN T SCH (22:00)
[2023-07-10] MEDS ORDERED: Pramipexole Dihydrochloride 0.5 MG TAB PO SCH (22:00)
[2023-07-10] MEDS ORDERED: ATORVASTATIN CALCIUM 40 MG TABLET PO SCH (22:00)
[2023-07-10] MEDS ORDERED: AMMONIUM LACTATE 12% LOTION T SCH (22:00)
[2023-07-10] MEDS ORDERED: NYSTATIN CREAM 15 GM TUBE T SCH (22:00)
[2023-07-10] MEDS ORDERED: Losartan Potassium 50 MG TAB PO SCH (22:00)
[2023-07-10] MEDS ORDERED: CARVEDILOL 25 MG TAB PO SCH (22:00)
[2023-07-10 22:51] LABS: BILIRUBIN Negative (Negative); BLOOD Trace-Lysed (Negative); CLARITY Clear (Clear); COLOR Yellow (Yellow); GLUCOSE Negative (Negative); KETONE Negative (Negative); LEUKO ESTERASE 1+ (Negative); NITRITE Negative (Negative); SPECIFIC GRAVITY 1.015 (1.001-1.030); UROBILINOGEN 0.2 E.U./dl (0.0-1.0)
[2023-07-10 23:21] LABS: BACTERIA 1+
[2023-07-11] VITALS: BP 124/75
[2023-07-11 06:16] LABS: BASO % 0.3 % (0.0-1.0); EOS # 0.3 10*3/uL (0.0-0.4); EOS % 4.9 % (1.0-4.0); HEMATOCRIT 31.3 % (42.0-52.0); LYMPH # 1.8 10*3/uL (1.3-4.4); MEAN CORPUSCULAR HGB 25.8 pg (27.0-31.0); MEAN PLATELET VOLUME 9.4 fl (9.6-12.3); MONO # 0.6 10*3/uL (0.1-1.0); MONO % 8.4 % (3.0-9.0); NEUT # 3.9 10*3/uL (2.3-7.9); NEUT % 59.1 % (47.0-73.0); PLATELET COUNT AUTOMATED 251 10*3/uL (130-400); RED BLOOD COUNT 3.64 10*6/uL (4.50-5.90); WHITE BLOOD COUNT 6.5 10*3/uL (4.8-10.8)
[2023-07-11 08:00] VITALS: BP 103/51
[2023-07-11 08:22] LABS: ALKALINE PHOSPHATASE 70 U/L (46-116); BUN 9 mg/dl (9-23); CHLORIDE 105 mmol/L (98-107); POTASSIUM 3.9 mmol/L (3.4-5.1); SGPT/ALT 10 U/L (5-49); TOTAL PROTEIN 5.6 gm/dL (6.0-8.0)
[2023-07-11] MEDS ORDERED: ASPIRIN ENTERIC COATED 81 MG TAB PO SCH (10:00)
[2023-07-11] MEDS ORDERED: BUMETANIDE 1 MG TAB PO SCH (10:00)
[2023-07-11] MEDS ORDERED: Sodium Hypochlorite 0.125% (1/4 STRENGTH DAKIN'S) 480 ML SOL T SCH (10:00)
[2023-07-11] MEDS ORDERED: amLODIPine besylate 5 MG TAB PO SCH (10:00)
[2023-07-11] MEDS ORDERED: CITALOPRAM 20 MG TAB PO SCH (10:00)
[2023-07-11] MEDS ORDERED: LORATADINE 10 MG TAB PO SCH (11:30)
[2023-07-11 11:55] VITALS: BP 118/60
[2023-07-11] MEDS ORDERED: DOCUSATE SODIUM 100 MG CAP PO PRN (15:45)
[2023-07-11 16:00] VITALS: BP 139/61
[2023-07-11] MEDS ORDERED: Ceftriaxone Sodium 1 GM in SYRINGE INFUSION 10 ML IV SCH (16:00)
[2023-07-11 20:00] VITALS: BP 117/59
[2023-07-12] VITALS: BP 122/79
[2023-07-12 05:29] LABS: BUN 9 mg/dl (9-23); CHLORIDE 105 mmol/L (98-107)
[2023-07-12 06:17] LABS: BASO % 0.3 % (0.0-1.0); EOS # 0.3 10*3/uL (0.0-0.4); EOS % 5.7 % (1.0-4.0); LYMPH # 1.7 10*3/uL (1.3-4.4); LYMPH % 29.9 % (27.0-41.0); MEAN CELL VOLUME 86.8 fl (80.0-94.0); MEAN CORPUSCULAR HGB 25.8 pg (27.0-31.0); MEAN CORPUSCULAR HGB CONC 29.7 g/dl (33.0-37.0); MEAN PLATELET VOLUME 9.7 fl (9.6-12.3); MONO # 0.6 10*3/uL (0.1-1.0); MONO % 9.6 % (3.0-9.0); NEUT # 3.1 10*3/uL (2.3-7.9); NEUT % 54.2 % (47.0-73.0); PLATELET COUNT AUTOMATED 232 10*3/uL (130-400); RED BLOOD COUNT 3.57 10*6/uL (4.50-5.90); RED CELL DISTRI WIDTH 15.9 % (0-14.5); WHITE BLOOD COUNT 5.8 10*3/uL (4.8-10.8)
[2023-07-12 08:00] VITALS: BP 117/57
[2023-07-12] MEDS ORDERED: PERFLUTREN PROTEIN-A MICROSPHR 3 ML VIAL IV ONE (09:05)
[2023-07-12 12:00] VITALS: BP 120/62
[2023-07-12 16:00] VITALS: BP 118/47
[2023-07-12] MEDS ORDERED: Ceftriaxone Sodium 2 GM in SYRINGE INFUSION 20 ML IV SCH (17:00)
[2023-07-12] MEDS ORDERED: HEEL PROTECTOR DEVICE ONE (17:51)
[2023-07-12] MEDS ORDERED: CHAIR CUSHION DEVICE ONE (17:51)
[2023-07-12 20:00] VITALS: BP 127/79
[2023-07-13 00:20] VITALS: BP 129/68
[2023-07-13] MEDS ORDERED: PHENOL/NA PHENOLATE 20 ML THROAT SPRAY T PRN (05:50)
[2023-07-13 06:23] LABS: BASO % 0.2 % (0.0-1.0); EOS # 0.3 10*3/uL (0.0-0.4); EOS % 4.4 % (1.0-4.0); HEMATOCRIT 32.3 % (42.0-52.0); LYMPH # 1.5 10*3/uL (1.3-4.4); LYMPH % 22.8 % (27.0-41.0); MEAN CELL VOLUME 88.7 fl (80.0-94.0); MEAN CORPUSCULAR HGB 25.8 pg (27.0-31.0); MEAN CORPUSCULAR HGB CONC 29.1 g/dl (33.0-37.0); MEAN PLATELET VOLUME 9.3 fl (9.6-12.3); MONO # 0.5 10*3/uL (0.1-1.0); MONO % 7.5 % (3.0-9.0); NEUT # 4.2 10*3/uL (2.3-7.9); NEUT % 64.8 % (47.0-73.0); PLATELET COUNT AUTOMATED 231 10*3/uL (130-400); RED BLOOD COUNT 3.64 10*6/uL (4.50-5.90); RED CELL DISTRI WIDTH 15.9 % (0-14.5); WHITE BLOOD COUNT 6.5 10*3/uL (4.8-10.8)
[2023-07-13 06:50] LABS: BUN 9 mg/dl (9-23); CHLORIDE 105 mmol/L (98-107); POTASSIUM 4.3 mmol/L (3.4-5.1)
[2023-07-13 08:00] VITALS: BP 116/70
[2023-07-13] MEDS ORDERED: Vitamin D 1,000 IU TAB (25 MCG) PO SCH (10:00)
[2023-07-13] MEDS ORDERED: Benzocaine/Menthol 1 LOZ LOZENGE PO PRN (11:00)
[2023-07-13 12:00] VITALS: BP 145/75
[2023-07-13 16:00] VITALS: BP 123/79
[2023-07-13 20:00] VITALS: BP 134/69; BP 159/69
[2023-07-14 06:37] LABS: BASO % 0.3 % (0.0-1.0); EOS # 0.3 10*3/uL (0.0-0.4); EOS % 4.7 % (1.0-4.0); HEMATOCRIT 31.9 % (42.0-52.0); LYMPH # 1.6 10*3/uL (1.3-4.4); LYMPH % 22.2 % (27.0-41.0); MEAN CELL VOLUME 88.4 fl (80.0-94.0); MEAN CORPUSCULAR HGB CONC 29.5 g/dl (33.0-37.0); MEAN PLATELET VOLUME 9.3 fl (9.6-12.3); MONO # 0.5 10*3/uL (0.1-1.0); MONO % 7.4 % (3.0-9.0); NEUT # 4.7 10*3/uL (2.3-7.9); NEUT % 65.1 % (47.0-73.0); PLATELET COUNT AUTOMATED 241 10*3/uL (130-400); RED BLOOD COUNT 3.61 10*6/uL (4.50-5.90); RED CELL DISTRI WIDTH 15.9 % (0-14.5); WHITE BLOOD COUNT 7.2 10*3/uL (4.8-10.8)
[2023-07-14 06:39] LABS: BUN 9 mg/dl (9-23); CHLORIDE 104 mmol/L (98-107); POTASSIUM 4.1 mmol/L (3.4-5.1)
[2023-07-14 08:00] VITALS: BP 123/57
[2023-07-14] MEDS ORDERED: FLUTICASONE PROPIONATE Nasal 16 Gm spray NAS SCH (10:00)
[2023-07-14 12:00] VITALS: BP 122/67
[2023-07-14 16:00] VITALS: BP 117/60
[2023-07-14 20:00] VITALS: BP 123/68
[2023-07-14] MEDS ORDERED: Ketorolac Tromethamine 15 MG/ML VIAL IV PRN (21:05)
[2023-07-15] VITALS: BP 128/70
[2023-07-15 06:37] LABS: ALKALINE PHOSPHATASE 79 U/L (46-116); BUN 9 mg/dl (9-23); CHLORIDE 105 mmol/L (98-107); POTASSIUM 3.9 mmol/L (3.4-5.1); SGPT/ALT 14 U/L (5-49); TOTAL PROTEIN 5.8 gm/dL (6.0-8.0)
[2023-07-15 08:00] VITALS: BP 123/65
[2023-07-15 12:00] VITALS: BP 130/67
[2023-07-15] MEDS ORDERED: VANCOMYCIN/WATER FOR INJ (PEG) 400 ML IV SCH (12:00)
[2023-07-15 16:00] VITALS: BP 108/59
[2023-07-15 20:00] VITALS: BP 141/73
[2023-07-16] VITALS: BP 143/70
[2023-07-16 07:11] LABS: BUN 10 mg/dl (9-23); CHLORIDE 106 mmol/L (98-107); POTASSIUM 3.7 mmol/L (3.4-5.1)
[2023-07-16 08:00] VITALS: BP 132/73
[2023-07-16] MEDS ORDERED: XANAX1 MG PO (10:57)
[2023-07-16] MEDS ORDERED: ZYVOX600 MG PO (10:57)
[2023-07-16 12:00] VITALS: BP 128/64
== END 2023-07-16 13:15 | DRG 689 ==
LOC: ED 14:17 → 4E 16:28 → EDHOLD 16:28 → 4E 17:29
PROVIDERS: Family Medicine; Nurse Practitioner Family; Student in an Organized Health Care Education/Training Program; ADMIT Family Medicine; ATTEND Family Medicine
DX: N30.00 Acute cystitis without hematuria (principal); E43 Unspecified severe protein-calorie malnutrition; E87.20 Acidosis, unspecified; I50.32 Chronic diastolic (congestive) heart failure; E66.2 Morbid (severe) obesity with alveolar hypoventilation; Z68.45 Body mass index [BMI] 70 or greater, adult; R07.89 Other chest pain; R73.9 Hyperglycemia, unspecified; I48.0 Paroxysmal atrial fibrillation; F33.41 Major depressive disorder, recurrent, in partial remission; I87.2 Venous insufficiency (chronic) (peripheral); E65 Localized adiposity; D64.9 Anemia, unspecified; Z88.6 Allergy status to analgesic agent; Z88.8 Allergy status to other drugs, medicaments and biological substances; S81.801D Unspecified open wound, right lower leg, subsequent encounter; Z82.49 Family history of ischemic heart disease and other diseases of the circulatory system; Z80.3 Family history of malignant neoplasm of breast; Z83.3 Family history of diabetes mellitus; Y93.89 Activity, other specified; Y92.89 Other specified places as the place of occurrence of the external cause; Y99.8 Other external cause status

== ENCOUNTER → 2023-07-21 | Outpatient (CLI) | payer MEDICARE ==
[~2023-07-21] MED LIST changes: +DOXEPIN HCL100 MG PO; +ZYVOX600 MG PO
== END | disposition home or self-care (01) ==
LOC: WOUNDCARE 01:09
PROVIDERS: ATTEND Nurse Practitioner Family
DX: E11.622 Type 2 diabetes mellitus with other skin ulcer (principal); L97.812 Non-pressure chronic ulcer of other part of right lower leg with fat layer exposed; L03.115 Cellulitis of right lower limb; S81.802A Unspecified open wound, left lower leg, initial encounter; E11.51 Type 2 diabetes mellitus with diabetic peripheral angiopathy without gangrene; E11.69 Type 2 diabetes mellitus with other specified complication; M86.9 Osteomyelitis, unspecified; I10 Essential (primary) hypertension; I48.91 Unspecified atrial fibrillation; I87.2 Venous insufficiency (chronic) (peripheral); J44.9 Chronic obstructive pulmonary disease, unspecified; G47.30 Sleep apnea, unspecified; G25.81 Restless legs syndrome; R01.1 Cardiac murmur, unspecified; E66.01 Morbid (severe) obesity due to excess calories; F41.9 Anxiety disorder, unspecified; F32.9 Major depressive disorder, single episode, unspecified; Z68.44 Body mass index [BMI] 60.0-69.9, adult; Z79.84 Long term (current) use of oral hypoglycemic drugs; Z79.899 Other long term (current) drug therapy; X58.XXXA Exposure to other specified factors, initial encounter; Y93.89 Activity, other specified; Y92.89 Other specified places as the place of occurrence of the external cause; Y99.8 Other external cause status

== ENCOUNTER 2023-08-04 12:16 | Emergency (ER) | payer MEDICARE ==
[~2023-08-04] VITALS: Ht 185.4 cm; Wt 240.4 kg
[2023-08-04] MEDS ORDERED: Lidocaine Hydrochloride 2% 5 ML SDV IJ ONE ×2 (13:15)
[2023-08-04] MEDS ORDERED: CEPHALEXIN500 M1 PO (14:52)
== END 2023-08-04 15:05 | disposition home or self-care (01) ==
LOC: ED 12:16
DX: S81.811A Laceration without foreign body, right lower leg, initial encounter (principal); I87.2 Venous insufficiency (chronic) (peripheral); Z88.5 Allergy status to narcotic agent; Z88.8 Allergy status to other drugs, medicaments and biological substances; Z79.899 Other long term (current) drug therapy; Z98.890 Other specified postprocedural states; X58.XXXA Exposure to other specified factors, initial encounter; Y93.89 Activity, other specified; Y92.89 Other specified places as the place of occurrence of the external cause; Y99.8 Other external cause status

== ENCOUNTER 2023-08-16 10:26 | Inpatient (IN) | payer MEDICARE ==
[~2023-08-16] VITALS: Ht 182.9 cm; Wt 245.8 kg
[2023-08-16 10:54] VITALS: BP 107/62
[2023-08-16 11:54] LABS: BASO % 0.3 % (0.0-1.0); EOS # 0.4 10*3/uL (0.0-0.4); HEMATOCRIT 34.9 % (42.0-52.0); LYMPH # 1.3 10*3/uL (1.3-4.4); LYMPH % 17.5 % (27.0-41.0); MEAN CELL VOLUME 87.5 fl (80.0-94.0); MEAN CORPUSCULAR HGB 26.1 pg (27.0-31.0); MEAN CORPUSCULAR HGB CONC 29.8 g/dl (33.0-37.0); MEAN PLATELET VOLUME 9.5 fl (9.6-12.3); MONO # 0.5 10*3/uL (0.1-1.0); MONO % 6.8 % (3.0-9.0); NEUT # 5.1 10*3/uL (2.3-7.9); PLATELET COUNT AUTOMATED 279 10*3/uL (130-400); RED BLOOD COUNT 3.99 10*6/uL (4.50-5.90); RED CELL DISTRI WIDTH 15.9 % (0-14.5); WHITE BLOOD COUNT 7.2 10*3/uL (4.8-10.8)
[2023-08-16 12:05] LABS: ACT PARTIAL THROMBO TIME 34.5 SECONDS (20.0-32.1)
[2023-08-16 12:16] LABS: ALKALINE PHOSPHATASE 89 U/L (46-116); BUN 11 mg/dl (9-23); CHLORIDE 102 mmol/L (98-107); POTASSIUM 4.5 mmol/L (3.4-5.1); SGPT/ALT 14 U/L (5-49); TOTAL PROTEIN 6.8 gm/dL (6.0-8.0)
[2023-08-16] MEDS ORDERED: IOHEXOL 300 MG/ML 100 ML VIAL IV ONE (12:25)
[2023-08-16] MEDS ORDERED: Piperacillin Sodium/Tazobact 100 ML IV ONE (15:05)
[2023-08-16] MEDS ORDERED: Vancomycin Hydrochloride 250 ML IV ONE (15:05)
[2023-08-16] MEDS ORDERED: BISACODYL 5 MG TAB PO PRN (15:45)
[2023-08-16] MEDS ORDERED: Ondansetron Hydrochloride 4 MG/2 ML VIAL IV PRN (15:45)
[2023-08-16] MEDS ORDERED: ACETAMINOPHEN 325 MG TAB PO PRN (15:45)
[2023-08-16] MEDS ORDERED: Magnesium Hydroxide 30 ML UDC PO PRN (15:45)
[2023-08-16] MEDS ORDERED: ACETAMINOPHEN 650 MG SUPP R PRN (15:45)
[2023-08-16] MEDS ORDERED: BISACODYL 10 MG SUPP R PRN (15:45)
[2023-08-16] MEDS ORDERED: VANCOMYCIN/WATER FOR INJ (PEG) 400 ML IV SCH (18:00)
[2023-08-16 18:47] VITALS: BP 101/49
[2023-08-16] MEDS ORDERED: Piperacillin Sodium/Tazobact 50 ML IV SCH (22:00)
[2023-08-16 22:54] VITALS: BP 105/47
[2023-08-16] MEDS ORDERED: ALPRAZolam 0.25 MG TAB PO ONE (23:15)
[2023-08-16] MEDS ORDERED: Doxepin Hydrochloride 10 MG/ML OZ PO ONE (23:20)
[2023-08-17] MEDS ORDERED: Vancomycin Hydrochloride 1,000 MG in SODIUM CHLORIDE 0.9% 250 ML IV SCH
[2023-08-17 04:00] VITALS: BP 110/62
[2023-08-17 06:41] LABS: BASO % 0.3 % (0.0-1.0); EOS # 0.4 10*3/uL (0.0-0.4); EOS % 6.2 % (1.0-4.0); HEMATOCRIT 29.4 % (42.0-52.0); LYMPH # 1.9 10*3/uL (1.3-4.4); LYMPH % 33.2 % (27.0-41.0); MEAN CELL VOLUME 87.8 fl (80.0-94.0); MEAN CORPUSCULAR HGB 26.3 pg (27.0-31.0); MEAN CORPUSCULAR HGB CONC 29.9 g/dl (33.0-37.0); MEAN PLATELET VOLUME 9.5 fl (9.6-12.3); MONO # 0.6 10*3/uL (0.1-1.0); MONO % 10.5 % (3.0-9.0); NEUT # 2.9 10*3/uL (2.3-7.9); NEUT % 49.6 % (47.0-73.0); PLATELET COUNT AUTOMATED 238 10*3/uL (130-400); RED BLOOD COUNT 3.35 10*6/uL (4.50-5.90); WHITE BLOOD COUNT 5.8 10*3/uL (4.8-10.8)
[2023-08-17 07:10] LABS: BUN 11 mg/dl (9-23); CHLORIDE 102 mmol/L (98-107); POTASSIUM 3.8 mmol/L (3.4-5.1)
[2023-08-17 08:00] VITALS: BP 108/60
[2023-08-17] MEDS ORDERED: VANCOMYCIN/WATER FOR INJ (PEG) 400 ML IV SCH (08:00)
[2023-08-17] MEDS ORDERED: ALBUTEROL 8 GM INHALER INH PRN (08:30)
[2023-08-17] MEDS ORDERED: Albuterol Sulfate 2.5 MG/3 ML VIAL NEB PRN (08:50)
[2023-08-17] MEDS ORDERED: Vitamin D 1,000 IU TAB (25 MCG) PO SCH (10:00)
[2023-08-17] MEDS ORDERED: Losartan Potassium 50 MG TAB PO SCH (10:00)
[2023-08-17] MEDS ORDERED: Menthol/Zinc Oxide 4 GM THIN T SCH (10:00)
[2023-08-17] MEDS ORDERED: DOXAZOSIN MESYLATE 2 MG TAB PO SCH (10:00)
[2023-08-17] MEDS ORDERED: CITALOPRAM 20 MG TAB PO SCH (10:00)
[2023-08-17] MEDS ORDERED: amLODIPine besylate 5 MG TAB PO SCH (10:00)
[2023-08-17] MEDS ORDERED: RIVAROXABAN 20 MG TAB PO SCH (10:00)
[2023-08-17] MEDS ORDERED: CARVEDILOL 25 MG TAB PO SCH (10:00)
[2023-08-17] MEDS ORDERED: AMMONIUM LACTATE 12% LOTION T SCH (10:00)
[2023-08-17] MEDS ORDERED: BUMETANIDE 1 MG TAB PO SCH (10:00)
[2023-08-17] MEDS ORDERED: POTASSIUM CHLORIDE 20 MEQ TAB PO SCH (10:00)
[2023-08-17 11:34] VITALS: BP 111/53
[2023-08-17] MEDS ORDERED: NYSTATIN CREAM 15 GM TUBE T SCH (14:00)
[2023-08-17 16:49] VITALS: BP 105/50
[2023-08-17] MEDS ORDERED: Pramipexole Dihydrochloride 0.5 MG TAB PO SCH (22:00)
[2023-08-17] MEDS ORDERED: NYSTATIN 15 GM BOT T SCH (22:00)
[2023-08-17] MEDS ORDERED: Doxepin Hydrochloride 25 MG CAP PO SCH (22:00)
[2023-08-18] VITALS: BP 122/70
[2023-08-18 06:38] LABS: BASO % 0.3 % (0.0-1.0); BUN 8 mg/dl (9-23); CHLORIDE 104 mmol/L (98-107); EOS # 0.3 10*3/uL (0.0-0.4); EOS % 5.7 % (1.0-4.0); HEMATOCRIT 29.1 % (42.0-52.0); LYMPH # 1.6 10*3/uL (1.3-4.4); MEAN CELL VOLUME 85.8 fl (80.0-94.0); MEAN CORPUSCULAR HGB CONC 30.2 g/dl (33.0-37.0); MEAN PLATELET VOLUME 9.7 fl (9.6-12.3); MONO # 0.6 10*3/uL (0.1-1.0); NEUT # 3.3 10*3/uL (2.3-7.9); NEUT % 56.8 % (47.0-73.0); PLATELET COUNT AUTOMATED 227 10*3/uL (130-400); POTASSIUM 3.8 mmol/L (3.4-5.1); RED BLOOD COUNT 3.39 10*6/uL (4.50-5.90); RED CELL DISTRI WIDTH 15.9 % (0-14.5); WHITE BLOOD COUNT 5.8 10*3/uL (4.8-10.8)
[2023-08-18 08:00] VITALS: BP 119/62
[2023-08-18] MEDS ORDERED: ALPRAZolam 0.5 MG TAB PO PRN (08:00)
[2023-08-18] MEDS ORDERED: SEPTDS PO (11:05)
[2023-08-18] MEDS ORDERED: Sodium Hypochlorite 0.125% (1/4 STRENGTH DAKIN'S) 480 ML SOL T SCH (11:15)
[2023-08-18] MEDS ORDERED: ALGINATE DRESSING/CME-CELL 4X4 1 EACH BANDAGE T ONE (11:45)
[2023-08-18 12:23] VITALS: BP 115/66
[2023-08-18 16:00] VITALS: BP 108/72
== END 2023-08-18 16:45 | disposition home or self-care (01) | DRG 602 ==
LOC: ED 10:26 → 4E 15:05 → EDHOLD 15:05 → EDBEDREQ 08-17 21:21 → 4E 08-17 21:29
PROVIDERS: Nurse Practitioner Family; Student in an Organized Health Care Education/Training Program; ADMIT Internal Medicine; ATTEND Internal Medicine
PROC: 5A09357 Assistance with Respiratory Ventilation, Less than 24 Consecutive Hours, Continuous Positive Airway Pressure (ICD-10-PCS; principal; 2023-08-16)
PROC: 0H9KXZZ Drainage of Right Lower Leg Skin, External Approach (ICD-10-PCS; 2023-08-17)
DX: L03.115 Cellulitis of right lower limb (principal); E43 Unspecified severe protein-calorie malnutrition; E87.1 Hypo-osmolality and hyponatremia; I48.11 Longstanding persistent atrial fibrillation; E66.2 Morbid (severe) obesity with alveolar hypoventilation; I50.32 Chronic diastolic (congestive) heart failure; Z68.45 Body mass index [BMI] 70 or greater, adult; I45.10 Unspecified right bundle-branch block; L02.415 Cutaneous abscess of right lower limb; D64.9 Anemia, unspecified; R07.89 Other chest pain; F33.41 Major depressive disorder, recurrent, in partial remission; G25.81 Restless legs syndrome; B95.62 Methicillin resistant Staphylococcus aureus infection as the cause of diseases classified elsewhere; Z82.49 Family history of ischemic heart disease and other diseases of the circulatory system; Z80.3 Family history of malignant neoplasm of breast; Z83.3 Family history of diabetes mellitus; Z88.5 Allergy status to narcotic agent; Z88.8 Allergy status to other drugs, medicaments and biological substances; Z79.51 Long term (current) use of inhaled steroids; Z79.84 Long term (current) use of oral hypoglycemic drugs; Z79.899 Other long term (current) drug therapy

== ENCOUNTER 2024-06-02 15:16 | Inpatient (IN) | payer MEDICARE ==
[~2024-06-02] VITALS: Ht 185.4 cm; Wt 186.0 kg
[~2024-06-02 15:16] MED LIST changes: +SEPTDS PO
[2024-06-02] MEDS ORDERED: SODIUM CHLORIDE 0.9% 1,000 ML IV ONE (15:30)
[2024-06-02 15:31] VITALS: BP 98/62
[2024-06-02 16:04] LABS: BASO % 0.3 % (0.0-1.0); EOS # 0.3 10*3/uL (0.0-0.4); EOS % 4.5 % (1.0-4.0); MEAN CELL VOLUME 90.2 fl (80.0-94.0); MEAN CORPUSCULAR HGB 27.3 pg (27.0-31.0); MEAN CORPUSCULAR HGB CONC 30.3 g/dl (33.0-37.0); MEAN PLATELET VOLUME 9.6 fl (9.6-12.3); MONO # 0.5 10*3/uL (0.1-1.0); MONO % 7.5 % (3.0-9.0); NEUT # 3.9 10*3/uL (2.3-7.9); PLATELET COUNT AUTOMATED 214 10*3/uL (130-400); RED CELL DISTRI WIDTH 15.5 % (0-14.5)
[2024-06-02 16:28] LABS: BUN 9 mg/dl (9-23); CHLORIDE 102 mmol/L (98-107); POTASSIUM 3.9 mmol/L (3.4-5.1)
[2024-06-02 16:34] LABS: BILIRUBIN Negative (Negative); BLOOD Trace-Lysed (Negative); CLARITY Clear (Clear); COLOR Yellow (Yellow); GLUCOSE Negative (Negative); KETONE Negative (Negative); LEUKO ESTERASE Trace (Negative); NITRITE Negative (Negative); PH 6.5 (4.5-8.0); UROBILINOGEN 0.2 E.U./dl (0.0-1.0)
[2024-06-02 16:42] LABS: BACTERIA TRACE
[2024-06-02] MEDS ORDERED: cefTRIAXone Sodium 1 GM/10 ML SYR IV ONE (17:00)
[2024-06-02 17:17] VITALS: BP 98/56
[2024-06-02] MEDS ORDERED: Magnesium Hydroxide 30 ML UDC PO PRN (17:30)
[2024-06-02] MEDS ORDERED: BISACODYL 5 MG TAB PO PRN (17:30)
[2024-06-02] MEDS ORDERED: ACETAMINOPHEN 650 MG SUPP R PRN (17:30)
[2024-06-02] MEDS ORDERED: ACETAMINOPHEN 325 MG TAB PO PRN (17:30)
[2024-06-02] MEDS ORDERED: BISACODYL 10 MG SUPP R PRN (17:30)
[2024-06-02] MEDS ORDERED: Ondansetron Hydrochloride 4 MG/2 ML VIAL IV PRN (17:30)
[2024-06-02] MEDS ORDERED: TEMAZEPAM 15 MG CAP PO PRN (17:30)
[2024-06-02] MEDS ORDERED: RIVAROXABAN 20 MG TAB PO SCH (18:00)
[2024-06-02 18:25] VITALS: BP 106/61
[2024-06-02 20:25] VITALS: BP 96/47
[2024-06-02] MEDS ORDERED: ALPRAZolam 0.5 MG TAB PO PRN (23:15)
[2024-06-03] VITALS: BP 112/59
[2024-06-03 06:03] LABS: BASO % 0.4 % (0.0-1.0); EOS # 0.3 10*3/uL (0.0-0.4); HEMATOCRIT 32.3 % (42.0-52.0); MEAN CORPUSCULAR HGB 26.4 pg (27.0-31.0); MEAN PLATELET VOLUME 9.8 fl (9.6-12.3); MONO # 0.4 10*3/uL (0.1-1.0); MONO % 8.2 % (3.0-9.0); NEUT # 2.9 10*3/uL (2.3-7.9); NEUT % 53.2 % (47.0-73.0); PLATELET COUNT AUTOMATED 190 10*3/uL (130-400); RED BLOOD COUNT 3.67 10*6/uL (4.50-5.90); RED CELL DISTRI WIDTH 15.7 % (0-14.5); WHITE BLOOD COUNT 5.4 10*3/uL (4.8-10.8)
[2024-06-03 06:05] LABS: BUN 9 mg/dl (9-23); CHLORIDE 103 mmol/L (98-107); POTASSIUM 3.7 mmol/L (3.4-5.1)
[2024-06-03 08:00] VITALS: BP 106/56
[2024-06-03] MEDS ORDERED: DOXAZOSIN MESYLATE 1 MG TAB PO SCH (10:00)
[2024-06-03] MEDS ORDERED: amLODIPine besylate 5 MG TAB PO SCH (10:00)
[2024-06-03] MEDS ORDERED: BUMETANIDE 1 MG TAB PO SCH (10:00)
[2024-06-03] MEDS ORDERED: Losartan Potassium 50 MG TAB PO SCH (10:00)
[2024-06-03] MEDS ORDERED: CARVEDILOL 25 MG TAB PO SCH (10:00)
[2024-06-03 12:00] VITALS: BP 110/62
[2024-06-03 16:00] VITALS: BP 118/64
[2024-06-03] MEDS ORDERED: cefTRIAXone Sodium 1 GM in SYRINGE INFUSION 10 ML IV SCH (17:00)
[2024-06-03 22:00] VITALS: BP 126/66
[2024-06-04] VITALS: BP 106/56
[2024-06-04 06:07] LABS: BASO % 0.4 % (0.0-1.0); EOS # 0.3 10*3/uL (0.0-0.4); EOS % 6.2 % (1.0-4.0); HEMATOCRIT 32.6 % (42.0-52.0); MEAN CELL VOLUME 87.9 fl (80.0-94.0); MEAN CORPUSCULAR HGB 26.7 pg (27.0-31.0); MEAN CORPUSCULAR HGB CONC 30.4 g/dl (33.0-37.0); MEAN PLATELET VOLUME 9.9 fl (9.6-12.3); MONO # 0.4 10*3/uL (0.1-1.0); MONO % 7.5 % (3.0-9.0); NEUT # 2.5 10*3/uL (2.3-7.9); PLATELET COUNT AUTOMATED 193 10*3/uL (130-400); RED BLOOD COUNT 3.71 10*6/uL (4.50-5.90); RED CELL DISTRI WIDTH 15.8 % (0-14.5); WHITE BLOOD COUNT 5.2 10*3/uL (4.8-10.8)
[2024-06-04 08:00] VITALS: BP 116/71
== END 2024-06-04 12:40 | disposition left against medical advice (07) | DRG 690 ==
LOC: ED 15:16 → EDHOLD 17:05 → 4E 19:22
PROVIDERS: Emergency Medicine; Student in an Organized Health Care Education/Training Program; ADMIT Internal Medicine; ATTEND Internal Medicine
DX: N30.01 Acute cystitis with hematuria (principal); E66.2 Morbid (severe) obesity with alveolar hypoventilation; E87.20 Acidosis, unspecified; I11.0 Hypertensive heart disease with heart failure; I50.9 Heart failure, unspecified; F41.9 Anxiety disorder, unspecified; I95.89 Other hypotension; Z53.29 Procedure and treatment not carried out because of patient's decision for other reasons; F33.41 Major depressive disorder, recurrent, in partial remission; G25.81 Restless legs syndrome; D50.9 Iron deficiency anemia, unspecified; E11.65 Type 2 diabetes mellitus with hyperglycemia; I48.0 Paroxysmal atrial fibrillation; Z91.09 Other allergy status, other than to drugs and biological substances; Z79.899 Other long term (current) drug therapy; Z79.01 Long term (current) use of anticoagulants; Z79.2 Long term (current) use of antibiotics; Z88.4 Allergy status to anesthetic agent; Z82.49 Family history of ischemic heart disease and other diseases of the circulatory system; Z83.3 Family history of diabetes mellitus; Z80.8 Family history of malignant neoplasm of other organs or systems